=== PATIENT | female | born 1995 | race Caucasian/White ===

== ENCOUNTER 2017-10-27 19:47 | Emergency (ER) | payer SELFPAY ==
[~2017-10-27] VITALS: Ht 162.6 cm; Wt 47.6 kg
[2017-10-27 19:59] VITALS: BP 106/63
--- NOTE | 2017-10-27 21:43 | NUR ---
PT STATES SHE DOES NOT WANT TO WAIT ANYMORE AND WALKED OUT WITHA STEADY GAIT
== END 2017-10-27 21:45 | disposition left against medical advice (07) ==
LOC: ER 19:50
DX: Z53.21 Procedure and treatment not carried out due to patient leaving prior to being seen by health care provider (principal)
CPT/HCPCS: A4606; Z7610

== ENCOUNTER 2025-04-10 10:40 | Emergency (ER) | payer MEDICAID ==
[~2025-04-10] VITALS: Ht 165.1 cm; Wt 49.9 kg
[2025-04-10] MEDS ORDERED: CEPH-570 PO (11:02)
[2025-04-10] MEDS ORDERED: DOXY100C2 PO (11:02)
[2025-04-10 11:35] VITALS: BP 110/72; TEMP 98.2; O2SAT 98
== END 2025-04-10 11:36 | disposition home or self-care (01) ==
LOC: ER 10:51
DX: T81.30XA Disruption of wound, unspecified, initial encounter (principal); F32.A Depression, unspecified; F41.9 Anxiety disorder, unspecified; X58.XXXA Exposure to other specified factors, initial encounter; Y93.89 Activity, other specified; Y92.89 Other specified places as the place of occurrence of the external cause; Y99.8 Other external cause status
CPT/HCPCS: 99283; A6403